=== PATIENT | male | born 1935 | race Caucasian/White ===

== ENCOUNTER 2017-11-21 22:27 | Emergency (ER) | payer OTHER ==
[~2017-11-21] VITALS: Ht 185.4 cm; Wt 70.3 kg
[~2017-11-21 22:27] MED LIST: ACYCLOVIR 800800 MG PO; CARAFATE 1 GM TA1 G1 PO; FLEXERIL PO; HYDROCODON-ACE1 EA11 PO; MIRALAX17 GM PO; NORCO 5-325 TA1 EACH PO; ONDANSETRON HCL4 M2 PO; PHENERGAN 25 MG25 M1 PO; PRILOSEC 20 MG20 MG; XANAX 0.5 MG0.5 MG; XANAX1 MG PO; ZANTAC 150MG T150 MG PO; ZOFRAN ODT4 MG PO; ZOLOFT50 MG PO
[2017-11-21 23:30] LABS: URINE BILIRUBIN NEGATIVE (Negative); URINE BLOOD 3+ (Negative); URINE CLARITY CLEAR; URINE COLOR RED; URINE GLUCOSE-RANDOM TRACE (Negative); URINE KETONES TRACE (Negative); URINE LEUKOCYTES-REFLEX 1+ (Negative); URINE PROTEIN 3+ (Negative)
[2017-11-21 23:40] LABS: URINE NITRITE-REFLEX POSITIVE (Negative)
[2017-11-21 23:42] LABS: SQUAMOUS 0-3 Few /LPF (0-3)
[2017-11-21 23:43] LABS: BACTERIA-REFLEX 1-9 Few /HPF (None Seen); CRYSTALS None Seen /LPF (None Seen); URINE RBC >20 Many /HPF (0-2); URINE WBC-REFLEX 6-15 Few /HPF (0-5); WBC CASTS 0-3 /LPF
[2017-11-21] MEDS ORDERED: BACTRIM DS TAB1 EACH PO (23:55)
[2017-11-22 00:30] VITALS: BP 176/81
== END 2017-11-22 00:30 | disposition home or self-care (01) ==
LOC: M.ERS 22:27
PROVIDERS: Nurse Practitioner Psychiatric/Mental Health
DX: N30.01 Acute cystitis with hematuria (principal); R34 Anuria and oliguria; I10 Essential (primary) hypertension; F17.210 Nicotine dependence, cigarettes, uncomplicated; Z90.49 Acquired absence of other specified parts of digestive tract

== ENCOUNTER 2017-11-22 11:28 | Emergency (ER) | payer OTHER ==
[~2017-11-22] VITALS: Ht 185.4 cm; Wt 70.3 kg
[~2017-11-22 11:28] MED LIST changes: +BACTRIM DS TAB1 EACH PO
[2017-11-22 12:28] LABS: ABSOLUTE EOSINOPHILS 0.1 thou/uL (0.0-0.7); ABSOLUTE LYMPHOCYTES 0.7 thou/uL (0.8-5.3); ABSOLUTE NEUTROPHILS 1.6 thou/uL (1.6-8.1); BASOPHILS 0.4 %; EOSINOPHILS 3.1 %; HEMOGLOBIN 8.2 gm/dL (14.0-18.0); LYMPHOCYTES 27.3 %; MCH 34.3 pg (26.0-34.0); MCHC 34.2 g/dL (28.0-37.0); MCV 100.2 fL (80.0-100.0); NUCLEATED RBCS 0 /100WBC; PLATELET COUNT* 68 thou/uL (150-400); POLYS 67.2 %; WBC 2.4 thou/uL (4.0-11.0)
[2017-11-22 12:36] LABS: PROTIME 10.1 Seconds (9.20-11.50)
[2017-11-22 12:40] LABS: CALCIUM 8.7 mg/dL (8.5-10.1); CREATININE 1.9 mg/dL (0.6-1.3); POTASSIUM 4.1 mmol/L (3.5-5.1)
[2017-11-22 12:45] LABS: ALBUMIN 3.4 g/dL (3.4-5.0); TOTAL BILIRUBIN 0.3 mg/dL (<0.1-1.0); TOTAL PROTEIN 6.7 g/dL (6.4-8.2)
[2017-11-22 13:26] VITALS: BP 178/92
== END 2017-11-22 13:27 | disposition left against medical advice (07) ==
LOC: M.ERS 11:28
PROVIDERS: Family Medicine
DX: R31.9 Hematuria, unspecified (principal); I10 Essential (primary) hypertension; F17.210 Nicotine dependence, cigarettes, uncomplicated; Z90.49 Acquired absence of other specified parts of digestive tract; Z85.46 Personal history of malignant neoplasm of prostate

== ENCOUNTER 2017-11-22 18:32 | Inpatient (IN) | payer OTHER ==
[~2017-11-22] VITALS: Ht 182.9 cm; Wt 70.3 kg
--- NOTE | 2017-11-22 18:53 | NUR ---
IRRIGATED CATHETER AT THIS TIME.
[2017-11-22 19:06] LABS: ABSOLUTE EOSINOPHILS 0.1 thou/uL (0.0-0.7); ABSOLUTE LYMPHOCYTES 0.9 thou/uL (0.8-5.3); ABSOLUTE MONOCYTES 0.1 thou/uL (0.0-1.2); ABSOLUTE NEUTROPHILS 1.8 thou/uL (1.6-8.1); BASOPHILS 0.5 %; EOSINOPHILS 2.8 %; HEMATOCRIT 25.6 % (42.0-52.0); HEMOGLOBIN 8.8 gm/dL (14.0-18.0); LYMPHOCYTES 30.7 %; MCH 34.6 pg (26.0-34.0); MCHC 34.6 g/dL (28.0-37.0); MONOCYTES 2.1 %; MPV 8.6 fl. (7.2-11.1); NUCLEATED RBCS 0 /100WBC; PLATELET COUNT* 74 thou/uL (150-400); POLYS 63.9 %; RBC 2.55 mil/uL (4.50-6.00); RDW-CV 16.3 % (10.5-14.5); WBC 2.8 thou/uL (4.0-11.0)
[2017-11-22 19:13] LABS: APTT 29.2 Seconds (25.0-31.3); CREATININE 2.1 mg/dL (0.6-1.3); PROTIME 9.9 Seconds (9.20-11.50)
[2017-11-22 19:17] LABS: ALBUMIN 3.7 g/dL (3.4-5.0); TOTAL BILIRUBIN 0.3 mg/dL (<0.1-1.0); TOTAL PROTEIN 7.3 g/dL (6.4-8.2)
[2017-11-22 19:30] LABS: URINE BILIRUBIN NEGATIVE (Negative); URINE BLOOD 3+ (Negative); URINE CLARITY CLOUDY; URINE COLOR RED; URINE GLUCOSE-RANDOM TRACE (Negative); URINE KETONES TRACE (Negative); URINE LEUKOCYTES-REFLEX 1+ (Negative); URINE PROTEIN 3+ (Negative)
[2017-11-22 19:31] LABS: URINE NITRITE-REFLEX POSITIVE (Negative)
[2017-11-22 19:38] LABS: SQUAMOUS 0-3 Few /LPF (0-3)
[2017-11-22 19:39] LABS: URINE RBC >20 Many /HPF (0-2); URINE WBC-REFLEX 0-5 Rare /HPF (0-5)
[2017-11-22 19:40] LABS: BACTERIA-REFLEX 1-9 Few /HPF (None Seen); CASTS None Seen /LPF (None Seen); CRYSTALS None Seen /LPF (None Seen); MUCUS None Seen strn/LPF (None Seen)
[2017-11-22 20:36] VITALS: BP 170/92
[2017-11-22 23:43] VITALS: BP 181/90
[2017-11-23 03:25] VITALS: BP 169/87
--- NOTE | 2017-11-23 06:51 | NUR ---
PATIENT FROM ER VIA CART TO ROOM 314 WITH SON/DAUGHTER INLAW PRESENT. PT SAID HE WENT TO ER X3 DUE TO INABILITY TO URINATE. GRAF PLACED AND PT WENT HOME. PT SAID IT WOULD BE OVER A MONTH BEFORE HE WAS ABLE TO GET APPT WITH UROLOGY. LATER PT HAD BLOOD IN [facility] CATHETER AND RETURNED TO ER UNABLE TO VOID. CATHETER IRRIGATED AND PT WAS TO BE ADMITTED BUT REFUSED AND WENT HOME. AFTER SEVERAL HOURS PT HAD NO URINE IN GRAF AND RETURNED TO ER THIS TIME TO BE ADMITTED. PT WITH DARK RED BLOOD IN CATHETER. GRAF IRRIGATED X4 DURING THIS SHIFT. THE FIRST TIME PT WITH BRIGHT RED BLOOD RETURN WITH NUMEROUS CLOTS. EACH TIME THEREAFTER RETURN WAS CLEAR. PT WITH NO CLOTS AT THIS TIME BUT HAS LIGHT PINK URINE. PT WITH FLUIDS INFUSING PER DR ORDER. PT ORIENTED TO ROOM/POLICIES AND VERBALIZED UNDERSTANDING. SIDERAILS UPX3 AND BED ALARM ON. CALL LIGHT WITHIN REACH. PT DENIES PAIN AT THIS TIME. WILL CONTINUE TO MONITOR.
[2017-11-23 08:00] VITALS: BP 187/90
[2017-11-23 12:28] VITALS: BP 187/90
--- NOTE | 2017-11-23 14:08 | NUR ---
CM SPOKE TO THE PATIENT TO DISCUSS HOME SITUATION, DISCHARGE PLANNING, AND ROLE OF CM. PATIENT KNOWN TO CM FROM PREVIOUS ADMISSION. PATIENT ALERT, ORIENTED, AND INDEPENDENT WITH ADL'S. 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 PATIENT USES 0 DME. PATIENT HAS NO HX OF HH OR SNF, AND PLANS TO RETURN HOME AT D/C. CM WILL REMAIN AVAILABLE TO ASSIST AND FOLLOW NEEDED.
--- NOTE | 2017-11-23 16:28 | NUR ---
PATIENT DISCHARGED TO HOME DISCHARGE PAPERS REVIEWED AND SIGNED. NO PRESCRIPTION. IV REMOVED. DR DAVID'S OFFICE INFORMED OF TEST RESULTS AND PATIENT'S INSISTANCE OF DISCHARGE, NO RETURN CALL FROM UROLOGY. PATIENT DENIES ANY FURTHER NEEDS. PATIENT TAKEN AMBULATORY TO EXIT. LEFT WITH SON.
== END 2017-11-23 16:30 | disposition home or self-care (01) | DRG 699 ==
LOC: M.ERS 18:32 → M.3W 18:47 → M.TBA-ER 18:47 → M.3W 21:10
PROVIDERS: Family Medicine; ADMIT Internal Medicine
DX: N30.41 Irradiation cystitis with hematuria (principal); D61.818 Other pancytopenia; R65.10 Systemic inflammatory response syndrome (SIRS) of non-infectious origin without acute organ dysfunction; N39.0 Urinary tract infection, site not specified; F17.210 Nicotine dependence, cigarettes, uncomplicated; I10 Essential (primary) hypertension; Z90.49 Acquired absence of other specified parts of digestive tract; Z85.46 Personal history of malignant neoplasm of prostate; Z79.899 Other long term (current) drug therapy

== ENCOUNTER 2017-12-03 16:07 | Emergency (ER) | payer OTHER ==
[~2017-12-03] VITALS: Ht 185.4 cm; Wt 70.3 kg
[2017-12-03 17:00] LABS: ABSOLUTE EOSINOPHILS 0.1 thou/uL (0.0-0.7); ABSOLUTE LYMPHOCYTES 0.9 thou/uL (0.8-5.3); ABSOLUTE MONOCYTES 0.1 thou/uL (0.0-1.2); ABSOLUTE NEUTROPHILS 1.4 thou/uL (1.6-8.1); BASOPHILS 0.8 %; EOSINOPHILS 3.1 %; HEMATOCRIT 21.6 % (42.0-52.0); HEMOGLOBIN 7.6 gm/dL (14.0-18.0); LYMPHOCYTES 35.5 %; MCH 35.1 pg (26.0-34.0); MCHC 35.1 g/dL (28.0-37.0); MCV 100.1 fL (80.0-100.0); MONOCYTES 2.3 %; NUCLEATED RBCS 0 /100WBC; PLATELET COUNT* 81 thou/uL (150-400); POLYS 58.3 %; RBC 2.15 mil/uL (4.50-6.00); RDW-CV 15.4 % (10.5-14.5); WBC 2.4 thou/uL (4.0-11.0)
[2017-12-03 17:07] LABS: CALCIUM 8.9 mg/dL (8.5-10.1); CREATININE 2.3 mg/dL (0.6-1.3); POTASSIUM 4.6 mmol/L (3.5-5.1)
[2017-12-03 17:12] LABS: ALBUMIN 3.6 g/dL (3.4-5.0); TOTAL BILIRUBIN 0.2 mg/dL (<0.1-1.0); TOTAL PROTEIN 6.5 g/dL (6.4-8.2)
[2017-12-03 17:14] LABS: URINE BLOOD 3+ (Negative); URINE CLARITY TURBID; URINE COLOR RED; URINE GLUCOSE-RANDOM NEGATIVE (Negative); URINE KETONES NEGATIVE (Negative); URINE LEUKOCYTES-REFLEX NEGATIVE (Negative); URINE NITRITE-REFLEX NEGATIVE (Negative); URINE PROTEIN 3+ (Negative); URINE UROBILINOGEN 0.2 E.U./dl (0.2-1.0)
[2017-12-03 17:16] LABS: URINE BILIRUBIN 1+ (Negative)
[2017-12-03 17:18] LABS: ICTOTEST (BILI CONFIRMATORY) Negative (Negative)
[2017-12-03 17:27] LABS: AMORPHOUS URATES Many /LPF (None Seen); HYALINE CASTS 4-10 Moderate /LPF (None Seen); URINE RBC >20 Many /HPF (0-2)
[2017-12-03 17:28] LABS: COARSE GRANULAR CASTS 0-3 Few /LPF (None Seen)
[2017-12-03 17:29] LABS: MUCUS 0-3 Light strn/LPF (None Seen); SQUAMOUS NONE SEEN /LPF (0-3)
[2017-12-03] MEDS ORDERED: KEFLEX500 M1 PO (18:02)
[2017-12-03 18:16] VITALS: BP 169/82
== END 2017-12-03 18:17 | disposition home or self-care (01) ==
LOC: M.ERS 16:07
PROVIDERS: Nurse Practitioner Family; Personal Emergency Response Attendant
DX: N39.0 Urinary tract infection, site not specified (principal); D64.9 Anemia, unspecified; I10 Essential (primary) hypertension; F17.210 Nicotine dependence, cigarettes, uncomplicated; Z90.49 Acquired absence of other specified parts of digestive tract; Z85.46 Personal history of malignant neoplasm of prostate

== ENCOUNTER 2017-12-07 08:41 | Emergency (ER) | payer OTHER ==
[~2017-12-07] VITALS: Ht 182.9 cm; Wt 79.4 kg
[~2017-12-07 08:41] MED LIST changes: +KEFLEX500 M1 PO
[2017-12-07 09:00] VITALS: BP 181/78
== END 2017-12-07 09:01 | disposition home or self-care (01) ==
LOC: M.ERS 08:41
DX: Z46.6 Encounter for fitting and adjustment of urinary device (principal); I10 Essential (primary) hypertension; Z90.49 Acquired absence of other specified parts of digestive tract; Z85.46 Personal history of malignant neoplasm of prostate

== ENCOUNTER → 2017-12-23 | Outpatient (CLI) | payer OTHER | LOC: M.WC 08:35 | DX: L59.8 Other specified disorders of the skin and subcutaneous tissue related to radiation (principal); K21.9 Gastro-esophageal reflux disease without esophagitis; F17.210 Nicotine dependence, cigarettes, uncomplicated; Z85.46 Personal history of malignant neoplasm of prostate; Z85.49 Personal history of malignant neoplasm of other male genital organs; Y84.2 Radiological procedure and radiotherapy as the cause of abnormal reaction of the patient, or of later complication, without mention of misadventure at the time of the procedure ==

== ENCOUNTER 2017-12-27 17:51 | Emergency (ER) | payer OTHER ==
[~2017-12-27] VITALS: Ht 185.4 cm; Wt 70.3 kg
[2017-12-27 18:33] LABS: ABSOLUTE LYMPHOCYTES 0.8 thou/uL (0.8-5.3); ABSOLUTE MONOCYTES 0.1 thou/uL (0.0-1.2); ABSOLUTE NEUTROPHILS 1.4 thou/uL (1.6-8.1); BASOPHILS 0.7 %; EOSINOPHILS 1.6 %; HEMATOCRIT 21.5 % (42.0-52.0); HEMOGLOBIN 7.5 gm/dL (14.0-18.0); LYMPHOCYTES 35.6 %; MCH 36.2 pg (26.0-34.0); MCHC 34.7 g/dL (28.0-37.0); MCV 104.3 fL (80.0-100.0); MONOCYTES 2.3 %; MPV 7.9 fl. (7.2-11.1); NUCLEATED RBCS 0 /100WBC; PLATELET COUNT* 68 thou/uL (150-400); POLYS 59.8 %; RBC 2.06 mil/uL (4.50-6.00); RDW-CV 16.7 % (10.5-14.5); WBC 2.3 thou/uL (4.0-11.0)
[2017-12-27 18:36] LABS: URINE BILIRUBIN NEGATIVE (Negative); URINE BLOOD 3+ (Negative); URINE CLARITY CLOUDY; URINE COLOR RED; URINE GLUCOSE-RANDOM NEGATIVE (Negative); URINE KETONES NEGATIVE (Negative); URINE LEUKOCYTES-REFLEX NEGATIVE (Negative); URINE NITRITE-REFLEX NEGATIVE (Negative); URINE PROTEIN 3+ (Negative); URINE SPECIFIC GRAVITY 1.015 (1.005-1.030); URINE UROBILINOGEN 0.2 E.U./dl (0.2-1.0)
[2017-12-27 18:39] LABS: MUCUS None Seen strn/LPF (None Seen); SQUAMOUS NONE SEEN /LPF (0-3); URINE RBC >20 Many /HPF (0-2)
[2017-12-27 18:40] LABS: BACTERIA-REFLEX None Seen /HPF (None Seen); CASTS None Seen /LPF (None Seen); CRYSTALS None Seen /LPF (None Seen); URINE WBC-REFLEX None Seen /HPF (0-5)
[2017-12-27 18:48] LABS: CALCIUM 8.6 mg/dL (8.5-10.1); CREATININE 1.8 mg/dL (0.6-1.3); POTASSIUM 4.6 mmol/L (3.5-5.1)
[2017-12-27 19:14] VITALS: BP 171/78
== END 2017-12-27 19:14 | disposition home or self-care (01) ==
LOC: M.ERS 17:51
PROVIDERS: Personal Emergency Response Attendant
DX: D64.9 Anemia, unspecified (principal); R31.9 Hematuria, unspecified; I10 Essential (primary) hypertension; F17.210 Nicotine dependence, cigarettes, uncomplicated; Z90.49 Acquired absence of other specified parts of digestive tract; Z85.46 Personal history of malignant neoplasm of prostate

== ENCOUNTER 2018-02-03 08:03 | Emergency (ER) | payer OTHER ==
[~2018-02-03] VITALS: Ht 185.4 cm; Wt 70.8 kg
[2018-02-03 08:35] LABS: URINE BILIRUBIN NEGATIVE (Negative); URINE BLOOD 1+ (Negative); URINE CLARITY CLEAR; URINE COLOR YELLOW; URINE GLUCOSE-RANDOM NEGATIVE (Negative); URINE KETONES NEGATIVE (Negative); URINE LEUKOCYTES-REFLEX NEGATIVE (Negative); URINE NITRITE-REFLEX NEGATIVE (Negative); URINE PROTEIN 1+ (Negative); URINE UROBILINOGEN 0.2 E.U./dl (0.2-1.0)
[2018-02-03 08:49] LABS: BACTERIA-REFLEX None Seen /HPF (None Seen); SQUAMOUS 0-3 Few /LPF (0-3); URINE RBC 3-10 Few /HPF (0-2); URINE WBC-REFLEX None Seen /HPF (0-5)
[2018-02-03 08:50] LABS: CRYSTALS None Seen /LPF (None Seen); HYALINE CASTS 4-10 Moderate /LPF (None Seen); MUCUS 0-3 Light strn/LPF (None Seen)
[2018-02-03 08:55] VITALS: BP 167/84
== END 2018-02-03 08:56 | disposition home or self-care (01) ==
LOC: M.ERS 08:03
PROVIDERS: Personal Emergency Response Attendant
DX: R31.9 Hematuria, unspecified (principal); I10 Essential (primary) hypertension; F17.210 Nicotine dependence, cigarettes, uncomplicated; Z90.49 Acquired absence of other specified parts of digestive tract

== ENCOUNTER 2018-02-12 09:35 | Emergency (ER) | payer OTHER ==
[~2018-02-12] VITALS: Ht 185.4 cm; Wt 70.8 kg
[2018-02-12 09:43] VITALS: BP 188/91
== END 2018-02-12 10:03 | disposition home or self-care (01) ==
LOC: M.ERS 09:35
DX: R31.9 Hematuria, unspecified (principal); I10 Essential (primary) hypertension; F17.210 Nicotine dependence, cigarettes, uncomplicated; Z90.49 Acquired absence of other specified parts of digestive tract; Z85.46 Personal history of malignant neoplasm of prostate

== ENCOUNTER → 2018-06-05 | Outpatient (CLI) | payer OTHER ==
[2018-06-05 09:18] VITALS: BP 134/77; BP 165/81; BP 174/82; BP 184/84
--- NOTE | 2018-06-05 12:19 | NUR ---
ARRIVED AMBULATORY. MADE SELF COMFORTABLE IN RECLINER. IV STARTED AND TYPE AND CROSS COMPLETED. PREMEDS PER ORDER. TRANSFUSION COMPLETED AND TOLERATED WELL. DENIES NEEDS OR QUESTIONS AT DISCHARGE. REFUSED LASIX AT END.
== END ==
LOC: M.INFUS 07:35 → M.LAB 08:00
DX: D61.818 Other pancytopenia (principal); Z85.46 Personal history of malignant neoplasm of prostate